=== PATIENT | female | born 1950 | race Caucasian/White ===

== ENCOUNTER 2022-06-30 13:08 | Inpatient (IN) | payer MEDICARE, OTHER ==
[~2022-06-30] VITALS: Ht 162.6 cm; Wt 64.4 kg
--- NOTE | 2022-06-30 13:30 | NUR ---
Called bottle house cleaners supervisor to try to get a sitter for patient since she is known to be agressive.
[2022-06-30 13:40] LABS: HEMATOCRIT 40.7 % (31.2-41.9); MEAN CORPUSCULAR VOLUME 94.9 fL (75.5-95.3); PLATELET COUNT (AUTO) 136 K/uL (179-408)
--- NOTE | 2022-06-30 13:41 | NUR ---
Patient BIBEMS from [facility], sent by PCP Dr. Hatch, for poor appetite, non-compliance with psychoactive medications and physically combative with staff. Patient is awake and alert, speaking to herself, repeating each word multiple times. Unable to assess cognitive status. Patient seen by the MD, labs ordered, 3 person required to hold her hand and #20G angio-cath to (RT) F/A, blood collected and sent. Patient is stable on the stretcher in the lowest position, call ferreira within reach, and awaiting disposition.
[2022-06-30 13:52] LABS: CARBON DIOXIDE 27 mmol/L (21-32); CHLORIDE 96 mmol/L (98-107); CREATININE 0.9 mg/dL (0.6-1.3); GLUCOSE 121 mg/dL (74-106); POTASSIUM 4.2 mmol/L (3.5-5.1); UREA NITROGEN, BLOOD 18 mg/dL (7-18)
[2022-06-30 13:55] LABS: ETHANOL < 3 MG/DL (0-0)
--- NOTE | 2022-06-30 14:00 | NUR ---
Note undone in EDM - 06/30/22 at 1854 by [email or web address] Patient BIBEMS from [facility], sent by PCP Dr. Hatch, for poor appetite, non-compliance with psychoactive medications and physically combative with staff. Patient is awake and alert, speaking to herself, repeating each word multiple times. Unable to assess patient's cognitive status. Patient seen by the MD labs ordered, 3 person required to hold her hand and #20G angio-cath to (RT) F/A, blood collected and sent. Patient is stable on the stretcher in the lowest position, call ferreira within reach, awaiting disposition.
[2022-06-30 14:05] LABS: ALANINE AMINOTRANSFERASE 22 U/L (14-59); ALKALINE PHOSPHATASE 112 U/L (50-136); ASPARTATE AMINOTRANSFERASE 43 U/L (15-37); BILIRUBIN,DIRECT 0.8 mg/dL (0.0-0.2); TOTAL PROTEIN, SERUM 6.6 g/dL (6.4-8.2)
[2022-06-30 14:08] LABS: ACETAMINOPHEN < 2.0 ug/mL (10-30)
--- NOTE | 2022-06-30 18:25 | NUR ---
Patient remains the same with no change in her behavior. No S/S of pain/discomfort. Patient medically cleared, [employer] On-Call elevator worker called, patient assessed and placed on a 5150 Hold, Danger to self and other, Gravely disabled. Patient has an assigned bed, assigned nurse RN , called and verbal report given via the telephone. Patient stable transported on the stretcher to her assigned bed. Patient became physically agressive, scrathing, kicking and grabbing staff. Patient left with his assigned nurse.
[2022-06-30 18:40] VITALS: BP 148/126
[2022-06-30] MEDS ORDERED: LORAZEPAM 0.5 MG TABLET PO PRN (18:45)
[2022-06-30] MEDS ORDERED: LORAZEPAM 2 MG/1 ML VIAL IM ONE (18:45)
[2022-06-30] MEDS ORDERED: diphenhydrAMINE 50 MG/1 ML VIAL IM ONE (18:45)
[2022-06-30] MEDS ORDERED: MAG HYDROX/AL HYDROX/SIMETH 30 ML LIQUID UDC PO PRN (18:45)
[2022-06-30] MEDS ORDERED: HALOPERIDOL LACTATE 5 MG/1 ML VIAL IM ONE (18:45)
[2022-06-30] MEDS ORDERED: ACETAMINOPHEN 325 MG TABLET PO PRN (18:45)
[2022-06-30] MEDS ORDERED: MAGNESIUM HYDROXIDE 30 ML LIQUID UDC PO PRN (18:45)
[2022-06-30] MEDS ORDERED: TEMAZEPAM 7.5 MG CAPSULE PO PRN (18:45)
--- NOTE | 2022-06-30 19:07 | NUR ---
Pt arrived on the unit at 1835 on the [facility]. Pt is irritable, A/O x0. Pt was combative when vital signs were taken. pt attempted to kick and punch staff. pt was not coopetive, non-sensical and not able to follow directions. Dr. Ruiz was contacted, order for Benadryl 25mg, Ativan 1 mg, Haldol 5 mg IM. Medication given, pt tolerated well. Report endorsed to the upcoming shift.
--- NOTE | 2022-06-30 20:00 | NUR ---
Admitted earlier during dayshift. patient is a 72 years old female form [facility] to [facility] on a 5150 for DTO and GD. per hold, patient has been aggressive toward others at her facility, she is confused and disorganized. She is not eating and not compliant with her medication regiment. Patient was received sitting in a claudio chair. She just got emergency IMs haldol, benadryl and ativan for severe agitation. Patient is noted confused, uncooperative, guarded and restless. She is unable to have a meaningful conversation with this fiction and nonfiction prose writer. Skin assessment was limited d/t patient's poor compliant. but it was observed bruises on her right wrist and distal arm. will reassess when she is calmer. patient was given her advisement as well as her booklet of patient's right. Safety and fall precautions continue in place. Her V/S are stable. she refused PO fluids and snacks. will continue to monitor Q15 min checks as per unit protocol.
[2022-06-30] MEDS ORDERED: AZAT50TA18 PO (21:32)
[2022-06-30] MEDS ORDERED: LISI1TAB55 PO (21:44)
[2022-06-30] MEDS ORDERED: DIVA250T4 PO (21:44)
[2022-06-30] MEDS ORDERED: MIRT-93 PO (21:44)
[2022-06-30] MEDS ORDERED: DONE5TAB7 PO (21:48)
--- NOTE | 2022-07-01 06:46 | NUR ---
Patient slept for approx 7 hrs through the night. she is calm at this time. will continue to monitor.
[2022-07-01 08:06] VITALS: BP 162/92
[2022-07-01] MEDS: OLANZAPINE 2.5 MG TABLET PO SCH ×2 (10:30→17:00)
--- NOTE | 2022-07-01 10:51 | NUR ---
Firearms Report: Unit Trust Manager completed and submitted a DOJ firearms report for 5150 grave disability and danger to others certifications. A copy of report has been placed in patient chart.
--- NOTE | 2022-07-01 14:34 | NUR ---
patient is confused and disoriented up to handy-chair ,patient is restless irritable not compliant with medication and nursing care. patient is agitated and aggressive when approach ,unable to attend in group activity .poor impulse control and poor insight will continue close monitoring.
[2022-07-01 16:09] VITALS: BP 138/73
--- NOTE | 2022-07-01 20:30 | NUR ---
Received patient sitting in a claudio chair. she is noted awake. she is confused, with disorganized speech. she is unable to have a meaningful conversation with this singer songwriter. She is resistant to care and combative at times. She requires two to three staff to provided ADLs and care. she is hard to redirect and she is unable to follow directions. Patient refused PO fluids and snacks. All her needs are met. she was provided with a shower. She refused V/S. Safety and fall precautions are in place
[2022-07-01] MEDS: DONEPEZIL 5 MG TABLET PO SCH (21:00)
[2022-07-01] MEDS: GABAPENTIN 100 MG CAPSULE PO SCH (21:00)
--- NOTE | 2022-07-01 22:00 | NUR ---
patient refused all her [facility] meds. she is hard to redirect and she does not follow directions. will continue with safety and fall precautions.
[2022-07-02 07:30] VITALS: BP 150/64
[2022-07-02] MEDS: GABAPENTIN 100 MG CAPSULE PO SCH ×2 (09:00→20:33)
[2022-07-02] MEDS: OLANZAPINE 2.5 MG TABLET PO SCH ×2 (09:00→17:00)
--- NOTE | 2022-07-02 14:13 | NUR ---
Treatment Plan Patient refused to sign treatment plan due to disorganized thought process.
--- NOTE | 2022-07-02 14:13 | NUR ---
SURESH Initial Discharge Note: Patient currently resides at [facility] located at [address] [place] [address] ([phone]). SURESH contacted [facility] and spoke with Radha who confirmed that pt is welcome back upon discharge. SURESH will speak with pt's daughter, Radha, to discuss discharge plan. SURESH will continue to work with pt, family, and MD to ensure a safe and proper discharge plan.
--- NOTE | 2022-07-02 15:40 | NUR ---
Receive patient sleeping in her room. A/O X 2 to person, place. Patient is withdrawn, isolative, refusing medications and uncooperative with nursing care, combative at times. Reality orientation provided. Fall and safety precautions implemented.
[2022-07-02 15:53] VITALS: BP 142/77
--- NOTE | 2022-07-02 16:19 | NUR ---
SW Family Contact: SW spoke with patient's daughter/DPOA, Radha ([phone]) and discussed treatment and discharge plan. Radha provided collateral information (see SW assessment). Radha stated she and her sister, Key, are DPOA and this SW requested copies.
[2022-07-02] MEDS: MEGESTROL ACETATE 20 MG TABLET PO SCH (17:00)
[2022-07-02] MEDS: ENSURE ENLIVE (VAN) 240 ML LIQUID PO SCH (17:00)
[2022-07-02 19:56] VITALS: BP 156/81
[2022-07-02] MEDS: DONEPEZIL 5 MG TABLET PO SCH (20:33)
--- NOTE | 2022-07-02 21:03 | NUR ---
GPS: Pt.remains confused,disorganized. Refuses meds.and care despite explanation of importance. Uncooperative/combative during care/incontinence care. Poor insight to present situation. Fall precautions observed. Will continue to monitor.
[2022-07-02] MEDS ORDERED: REMEDY ESSENTIAL ZINC PASTE 113 GM TOP SCH (22:15)
[2022-07-03 06:00] LABS: *AMPHETAMINE, URINE NEGATIVE (NEGATIVE); *CANNABINOID, URINE NEGATIVE (NEGATIVE); *COCCAINE, URINE NEGATIVE (NEGATIVE); *OPIATE, URINE NEGATIVE (NEGATIVE); *PHENCYCLIDINE SCREEN,URINE NEGATIVE (NEGATIVE)
[2022-07-03 06:23] LABS: *CLARITY,URINE TURBID (CLEAR); *COLOR,URINE YELLOW (YELLOW)
[2022-07-03 06:24] LABS: *BILIRUBIN,URIN NEGATIVE (NEGATIVE); *BLOOD, URINE 3+ (NEGATIVE); *KETONES,URINE 3+ (NEGATIVE); *UROBILINOGEN,URINE 0.2 E.U./dl (NORMAL); LEUKOCYTE ESTERASE ,URINE 3+ (NEGATIVE); NITRITE, URINE NEGATIVE (NEGATIVE); UGLUCOSE NEGATIVE (NEGATIVE)
--- NOTE | 2022-07-03 06:24 | NUR ---
GPS: Pt.slept 9.30 last night. Combative/uncooperative/resistant to nursing care despite explanation of procedures. Fall precautions observed. Refused PO fluids when encouraged. Behavior monitoring continues.
[2022-07-03 06:33] LABS: BACTERIA,URINE MANY /HPF (NONE SEEN); SQUAMOUS EPITHELIAL CELL,UR FEW /HPF (NONE SEEN); WBC,URINE NONE SEEN /HPF (0-3)
[2022-07-03 06:34] LABS: RBC,URINE 50-80 /HPF (0-3)
[2022-07-03 07:30] VITALS: BP 141/87
[2022-07-03] MEDS: GABAPENTIN 100 MG CAPSULE PO SCH ×2 (09:00→21:00)
[2022-07-03] MEDS: ENSURE ENLIVE (VAN) 240 ML LIQUID PO SCH ×3 (09:00→16:24)
[2022-07-03] MEDS: MEGESTROL ACETATE 20 MG TABLET PO SCH ×2 (09:00→16:25)
[2022-07-03] MEDS: OLANZAPINE 2.5 MG TABLET PO SCH ×2 (09:00→16:25)
--- NOTE | 2022-07-03 10:03 | NUR ---
Pt received lying in bed resting comfortably. No aggressive or combative behavior noted. Denies SI at this time. Pt is confused and disoriented, quite disorganized and nonsensical at times. Incongruent affect and labile mood. Refused all scheduled medications at this time.
[2022-07-03 16:06] VITALS: BP 136/80
--- NOTE | 2022-07-03 17:03 | NUR ---
Pt noted to have apparent worsening skin tear right forearm and right buttocks. Kept clean and dry. Cleansed with NS. Spoke with Dr. Hatch with orders to have wound consult. Pt denies pain or discomfort at this time. No s/s of infection noted.
[2022-07-03 20:02] VITALS: BP 140/80
[2022-07-03] MEDS: DONEPEZIL 5 MG TABLET PO SCH (21:00)
[2022-07-03] MEDS: CEphaleXIN 500 MG CAPSULE PO SCH (22:00)
--- NOTE | 2022-07-03 22:22 | NUR ---
Applied Mepalex-gauze to (R) buttocks, and applied bandage to (R) forearm wounds.
[2022-07-04] MEDS: CEphaleXIN 500 MG CAPSULE PO SCH ×3 (06:00→21:26)
[2022-07-04 07:39] VITALS: BP 136/82
[2022-07-04] MEDS: GABAPENTIN 100 MG CAPSULE PO SCH ×2 (09:00→20:11)
[2022-07-04] MEDS: MEGESTROL ACETATE 20 MG TABLET PO SCH ×2 (09:00→17:00)
[2022-07-04] MEDS: METOPROLOL TARTRATE 25 MG TABLET PO SCH ×2 (09:00→20:11)
[2022-07-04] MEDS: ENSURE ENLIVE (VAN) 240 ML LIQUID PO SCH ×3 (09:00→17:00)
[2022-07-04] MEDS: FAMOTIDINE 20 MG TABLET PO SCH (09:00)
[2022-07-04] MEDS: OLANZAPINE 10 MG VIAL IM PRN ×2 (10:25→20:45)
[2022-07-04] MEDS: OLANZAPINE 2.5 MG TABLET PO SCH ×2 (10:30→20:11)
[2022-07-04] MEDS ORDERED: CEFTRIAXONE 1 G VIAL IM ONE (11:30)
[2022-07-04] MEDS: REMEDY ESSENTIAL ZINC PASTE 113 GM TOP PRN (12:47)
--- NOTE | 2022-07-04 13:07 | NUR ---
SW Family Contact: SW spoke with patient's daughters/DPOA, Radha ([phone]) and Key ([phone]) in person and discussed pt's discharge plan. Mitzy stated that they are able to provide transportation for the pt if the facility is not able to. Mitzy stated pt ate a lot during lunch with them and appeared more engaging.
--- NOTE | 2022-07-04 13:31 | NUR ---
Gps/[employer]- Daughters were in , brought foods from home , patient was able to eat with them, and was able to drinks fluids. Fidgety, remains in bed at this time monitored for safety , talking confused and incoherent speech .
[2022-07-04 17:03] VITALS: BP 109/77
--- NOTE | 2022-07-04 17:35 | NUR ---
Gps/Aircraft Systems Technician- Kept skin dry and clean, frequent reporitioning, pressure relief, excoriation inner buttock, z-guard , mepilex applied /secured , patient tends to wiggle, slides
[2022-07-04 19:50] VITALS: BP 116/72
[2022-07-04] MEDS: DONEPEZIL 5 MG TABLET PO SCH (20:11)
[2022-07-05] MEDS: CEphaleXIN 500 MG CAPSULE PO SCH ×2 (05:48→14:00)
--- NOTE | 2022-07-05 05:56 | NUR ---
GPS NOTES: Remains non-compliant with medications and nursing care. Unable to understand concepts of importance of med compliance d/t confusion. Zyprexa 2.5mg IM given. Tolerated well. Safety strategies in placed.
[2022-07-05 07:42] VITALS: BP 126/76
[2022-07-05] MEDS: ENSURE ENLIVE (VAN) 240 ML LIQUID PO SCH ×3 (09:00→17:00)
[2022-07-05] MEDS: GABAPENTIN 100 MG CAPSULE PO SCH ×2 (09:00→20:08)
[2022-07-05] MEDS: OLANZAPINE 2.5 MG TABLET PO SCH ×2 (09:00→20:08)
[2022-07-05] MEDS: METOPROLOL TARTRATE 25 MG TABLET PO SCH ×2 (09:00→20:07)
[2022-07-05] MEDS: MEGESTROL ACETATE 20 MG TABLET PO SCH ×2 (09:00→17:00)
[2022-07-05] MEDS: FAMOTIDINE 20 MG TABLET PO SCH (09:00)
[2022-07-05] MEDS: OLANZAPINE 10 MG VIAL IM PRN ×2 (09:26→20:52)
--- NOTE | 2022-07-05 10:27 | NUR ---
SURESH Discharge Update: SURESH Spoke with leonadra and Jos regarding pt's transportation upon discharge. Jos stated they provide transportation only on Tuesdays and from 9am to 2pm.
--- NOTE | 2022-07-05 11:34 | NUR ---
WOUND CARE CONSULT: PT PRESENTS WITH INCONTINENCE ASSOCIATED OPEN SKIN TO RT INNER BUTTOCK AND SKIN TEAR TO RT ARM. PT ADAMANTLY REFUSED ASSESSMENT OF SKIN TEAR. RECOMMENDATIONS MADE FOR SKIN CARE AND PROTECTION. DISCUSSED WITH NURSING STAFF. PT NOTED TO BE COMBATIVE.
--- NOTE | 2022-07-05 11:34 | NUR ---
Gps/Mold Finisher- Wound Care Nurse Amy came in and examined wound in patient's right inner buttock , site was cleansed with water and soap, pat dry, z-guard applied, mepilex foam secured. Incontienent of urine, good skin care rendered. Called lab. spoked to Leslye , will be coming to re-draw labs. will assist Tech.
[2022-07-05 12:03] LABS: HEMATOCRIT 40.8 % (31.2-41.9); MEAN CORPUSCULAR HEMOGLOBIN 33.6 uug (24.7-32.8); PLATELET COUNT (AUTO) 91 K/uL (179-408)
[2022-07-05 12:27] LABS: THYROID STIMULATING HORMONE 1.224 mIU/mL (0.358-3.740)
[2022-07-05 13:20] LABS: BILIRUBIN,TOTAL 1.7 mg/dL (0.2-1.0); CREATININE 0.7 mg/dL (0.6-1.3); MAGNESIUM 1.8 mg/dL (1.8-2.4); PHOSPHOROUS 3.7 mg/dL (2.5-4.9); POTASSIUM 3.8 mmol/L (3.5-5.1); TOTAL PROTEIN, SERUM 6.3 g/dL (6.4-8.2)
--- NOTE | 2022-07-05 14:45 | NUR ---
Per Dr. Ruiz requested to transfer patient to telemetry , paged now.
--- NOTE | 2022-07-05 15:28 | NUR ---
Spoke with Dr. Ruiz will continue 14 days hold and also D/C all psychotropic medication for transfer.
--- NOTE | 2022-07-05 15:45 | NUR ---
notified hose brush fabrication supervisor for Tele transfer , waiting for the bed available .
--- NOTE | 2022-07-05 15:54 | NUR ---
Gps/Tank Welder- Orders received by Rn in Charge Karl from Dr Ruiz as well as Dr Greenwood , patient need to be transfer to Telemetry for higher level of care..
[2022-07-05] MEDS: REMEDY ESSENTIAL ZINC PASTE 113 GM TOP PRN (16:01)
[2022-07-05 16:58] VITALS: BP 128/74
[2022-07-05 19:54] VITALS: BP 124/72
[2022-07-05] MEDS: DONEPEZIL 5 MG TABLET PO SCH (20:07)
--- NOTE | 2022-07-05 21:15 | NUR ---
TRANSFER NOTES: Report given to Solange, patient transferred to telemetry unit room 321 d/t dehydration. Patient transferred safely from handy chair to bed.
[2022-07-05] MEDS ORDERED: MAG-55 PO (21:36)
[2022-07-05] MEDS ORDERED: ZINC113P3 TP (21:36)
[2022-07-05] MEDS ORDERED: FAMO-132 PO (21:36)
[2022-07-05] MEDS ORDERED: ACET-2154 PO (21:36)
[2022-07-05] MEDS ORDERED: CEPH500C2 PO (21:36)
[2022-07-05] MEDS ORDERED: MEGE20TA4 PO (21:36)
[2022-07-05] MEDS ORDERED: MAGN400O6 PO (21:36)
[2022-07-05] MEDS ORDERED: LACT-246 PO (21:36)
[2022-07-05] MEDS ORDERED: METO25TA6 PO (21:36)
[2022-07-08] MEDS ORDERED: ACID1TAB4 PO (16:18)
== END 2022-07-05 21:18 | disposition short-term general hospital (02) | DRG 885 ==
LOC: ER 13:11 → GPS 18:04
PROVIDERS: ADMIT Psychiatry & Neurology Psychosomatic Medicine; ATTEND Nurse Practitioner Acute Care
DX: F39 Unspecified mood [affective] disorder (principal); E87.1 Hypo-osmolality and hyponatremia; E44.0 Moderate protein-calorie malnutrition; N39.0 Urinary tract infection, site not specified; F03.92 Unspecified dementia, unspecified severity, with psychotic disturbance; F03.94 Unspecified dementia, unspecified severity, with anxiety; I85.10 Secondary esophageal varices without bleeding; M48.56XA Collapsed vertebra, not elsewhere classified, lumbar region, initial encounter for fracture; F29 Unspecified psychosis not due to a substance or known physiological condition; D69.6 Thrombocytopenia, unspecified; E80.6 Other disorders of bilirubin metabolism; I10 Essential (primary) hypertension; K74.60 Unspecified cirrhosis of liver; M19.90 Unspecified osteoarthritis, unspecified site; R62.7 Adult failure to thrive; Z88.2 Allergy status to sulfonamides; T50.2X5A Adverse effect of carbonic-anhydrase inhibitors, benzothiadiazides and other diuretics, initial encounter; Y92.89 Other specified places as the place of occurrence of the external cause; G62.9 Polyneuropathy, unspecified; F32.9 Major depressive disorder, single episode, unspecified; Z91.199 Patient's noncompliance with other medical treatment and regimen due to unspecified reason; Z68.24 Body mass index [BMI] 24.0-24.9, adult
CPT/HCPCS: 36415; 83735; 83935; 84100; 84300; 84443; 84484; 85025; 86803; 93005; A4663; A6209; C1758; G0480; J0696; J1200; J1630; J2060; J2358

== ENCOUNTER 2022-07-05 20:43 | Inpatient (IN) | payer MEDICARE, OTHER ==
[~2022-07-05] VITALS: Ht 162.6 cm; Wt 64.4 kg
[~2022-07-05 20:43] MED LIST: AZAT50TA18 PO; LISI1TAB55 PO
--- NOTE | 2022-07-05 21:15 | NUR ---
PATIENT ADMITTED FROM [facility] FOR DEHYDRATION. PATIENT IS ALERT TO SELF ONLY, CONFUSED AND DISORIENTED. SITTER AT BEDSIDE. VS WNL. ALL NEEDS ATTENDED. BED ALARM ON. WILL CONTINUE TO MONITOR AND ASSESS.
[2022-07-05] MEDS ORDERED: MAGN400O6 PO (21:36)
[2022-07-05] MEDS ORDERED: METO25TA6 PO (21:36)
[2022-07-05] MEDS ORDERED: ACET-2154 PO (21:36)
[2022-07-05] MEDS ORDERED: ZINC113P3 TP (21:36)
[2022-07-05] MEDS ORDERED: LACT-246 PO (21:36)
[2022-07-05] MEDS ORDERED: FAMO-132 PO (21:36)
[2022-07-05] MEDS ORDERED: CEPH500C2 PO (21:36)
[2022-07-05] MEDS ORDERED: MAG-55 PO (21:36)
[2022-07-05] MEDS ORDERED: MEGE20TA4 PO (21:36)
[2022-07-05] MEDS ORDERED: MAGNESIUM HYDROXIDE 30 ML LIQUID UDC PO PRN (22:00)
[2022-07-05] MEDS ORDERED: ACETAMINOPHEN 325 MG TABLET PO PRN (22:00)
[2022-07-05] MEDS ORDERED: ONDANSETRON 4 MG/2 ML VIAL IV PRN (22:00)
[2022-07-05] MEDS ORDERED: REMEDY ESSENTIAL ZINC PASTE 113 GM TP PRN (22:00)
[2022-07-05 22:17] VITALS: BP 117/63
[2022-07-05] MEDS: IV NS 1000 ML 1,000 ML IV PRN (22:43)
[2022-07-05] MEDS ORDERED: CEFTRIAXONE 1 G VIAL ONE (23:23)
[2022-07-05] MEDS: CEFTRIAXONE 1 G in IV DEXTROSE 5% 50 ML IV SCH (23:41)
[2022-07-06 04:42] VITALS: BP 116/64
[2022-07-06 06:34] LABS: HEMATOCRIT 37.4 % (31.2-41.9); MEAN CORPUSCULAR HEMOGLOBIN 33.6 uug (24.7-32.8); MEAN CORPUSCULAR VOLUME 95.8 fL (75.5-95.3); PLATELET COUNT (AUTO) 89 K/uL (179-408)
[2022-07-06 07:38] LABS: CARBON DIOXIDE 25 mmol/L (21-32); CHLORIDE 103 mmol/L (98-107); CREATININE 0.5 mg/dL (0.6-1.3); GLUCOSE 115 mg/dL (74-106); MAGNESIUM 1.8 mg/dL (1.8-2.4); PHOSPHOROUS 3.2 mg/dL (2.5-4.9); POTASSIUM 3.4 mmol/L (3.5-5.1); UREA NITROGEN, BLOOD 16 mg/dL (7-18)
[2022-07-06 08:36] VITALS: BP 102/65
[2022-07-06] MEDS: METOPROLOL TARTRATE 25 MG TABLET PO SCH ×2 (08:38→20:56)
[2022-07-06] MEDS: FAMOTIDINE 20 MG TABLET PO SCH (08:39)
[2022-07-06] MEDS: ENSURE ENLIVE (VAN) 240 ML LIQUID PO SCH ×3 (08:39→16:34)
[2022-07-06] MEDS ORDERED: ENOXAPARIN SODIUM 40 MG/0.4 ML DISP.SYRIN SQ SCH (09:00)
[2022-07-06] MEDS: CEFTRIAXONE 1 G in IV DEXTROSE 5% 50 ML IV SCH (09:52)
--- NOTE | 2022-07-06 10:05 | NUR ---
platelets count 89, dr rodriguez approved to give Lovenox once and then discontinue.
[2022-07-06] MEDS ORDERED: POTASSIUM CHLORIDE 20 MEQ TAB.PRT.SR PO ONE (10:30)
[2022-07-06] MEDS ORDERED: POTASSIUM CHLORIDE 20 MEQ POWDER PACKET PO ONE (11:30)
--- NOTE | 2022-07-06 12:13 | NUR ---
PATIENT REFUSED TO HAVE EKG DONE, PATIENT GOT COMBATIVE, WHILE TRIED TO DO EKG.
[2022-07-06] MEDS: AZATHIOPRINE 50 MG TABLET PO SCH (14:03)
[2022-07-06] MEDS: IV NS 1000 ML 1,000 ML IV PRN (14:50)
--- NOTE | 2022-07-06 15:34 | NUR ---
acute medical restraint mittens to both hands discontinued, patient has 1:1 sitter.
[2022-07-06 16:32] VITALS: BP 107/75
--- NOTE | 2022-07-06 18:18 | NUR ---
patient continue with combativeness during care, kept clean and dry, wound care is provided to right gluteal fold and to right wrist, no drainage noted from right gluteal wound and right wrist, no signs and symptoms of infections noted. continue to monitor.
[2022-07-06 20:32] VITALS: BP 115/64
[2022-07-06] MEDS: OLANZAPINE 2.5 MG TABLET PO SCH (20:56)
[2022-07-06] MEDS: DONEPEZIL 5 MG TABLET PO SCH (20:56)
[2022-07-06] MEDS: REMEDY ESSENTIAL ZINC PASTE 113 GM TP SCH (20:57)
[2022-07-06 21:24] LABS: EOSINOPHILS % (MANUAL) 1 % (0-8); LYMPHOCYTES % (MANUAL) 21 % (20-40); MONOCYTES % (MANUAL) 8 % (2-10); NEUTROPHILS % (MANUAL) 70 % (42-75)
[2022-07-07] MEDS: IV NS 1000 ML 1,000 ML IV PRN ×2 (04:17→18:00)
[2022-07-07 06:13] VITALS: BP 115/59
[2022-07-07] MEDS: FAMOTIDINE 20 MG TABLET PO SCH (08:25)
[2022-07-07] MEDS: METOPROLOL TARTRATE 25 MG TABLET PO SCH ×2 (08:34→20:27)
[2022-07-07 08:35] VITALS: BP 142/62
[2022-07-07] MEDS: CEFTRIAXONE 1 G in IV DEXTROSE 5% 50 ML IV SCH (09:00)
[2022-07-07] MEDS: ENSURE ENLIVE (VAN) 240 ML LIQUID PO SCH ×3 (09:01→16:12)
[2022-07-07] MEDS: AZATHIOPRINE 50 MG TABLET PO SCH (09:03)
[2022-07-07] MEDS: REMEDY ESSENTIAL ZINC PASTE 113 GM TP SCH ×2 (09:03→20:25)
[2022-07-07 10:49] VITALS: BP 114/45
[2022-07-07 16:30] VITALS: BP 110/55
[2022-07-07] MEDS: OLANZAPINE 2.5 MG TABLET PO SCH (20:24)
[2022-07-07] MEDS: DONEPEZIL 5 MG TABLET PO SCH (20:25)
[2022-07-07 20:32] VITALS: BP 108/50
--- NOTE | 2022-07-07 23:18 | NUR ---
patient continue with combativeness during care, IV access not patent, discontinued, not able to reinsert IV access, patient got too combative while try to put IV access on her, patient gets too combative and very resistive to care, did not sleep until now, constantly talking to herself, kept clean and dry, wound care is provided to right gluteal fold and to right wrist, no drainage noted from right gluteal wound and right wrist, no signs and symptoms of infections noted. continue to monitor. will try again to reinsert IV.
[2022-07-08 04:44] VITALS: BP 125/62
--- NOTE | 2022-07-08 06:08 | NUR ---
patient did not sleep at night, was awake during night and talking to herself, remained resistant and combative during care.
[2022-07-08 06:29] LABS: HEMATOCRIT 37.9 % (31.2-41.9); MEAN CORPUSCULAR HEMOGLOBIN 33.5 uug (24.7-32.8); MEAN CORPUSCULAR VOLUME 97.4 fL (75.5-95.3); PLATELET COUNT (AUTO) 88 K/uL (179-408)
[2022-07-08 06:53] LABS: BILIRUBIN,TOTAL 1.5 mg/dL (0.2-1.0); CREATININE 0.6 mg/dL (0.6-1.3); MAGNESIUM 1.7 mg/dL (1.8-2.4); PHOSPHOROUS 3.1 mg/dL (2.5-4.9); POTASSIUM 3.7 mmol/L (3.5-5.1); TOTAL PROTEIN, SERUM 5.7 g/dL (6.4-8.2)
[2022-07-08] MEDS: MAGNESIUM SULFATE/D5W 100 ML IV SCH ×2 (08:45→10:30)
[2022-07-08] MEDS ORDERED: POTASSIUM CHLORIDE 20 MEQ TAB.PRT.SR PO ONE (08:45)
[2022-07-08] MEDS: FAMOTIDINE 20 MG TABLET PO SCH (08:57)
[2022-07-08] MEDS: REMEDY ESSENTIAL ZINC PASTE 113 GM TP SCH (08:57)
[2022-07-08] MEDS: AZATHIOPRINE 50 MG TABLET PO SCH (08:58)
[2022-07-08] MEDS: ENSURE ENLIVE (VAN) 240 ML LIQUID PO SCH ×3 (08:58→17:55)
[2022-07-08] MEDS: CEFTRIAXONE 1 G in IV DEXTROSE 5% 50 ML IV SCH ×2 (09:00→10:30)
[2022-07-08 09:05] VITALS: BP 124/83
[2022-07-08] MEDS: METOPROLOL TARTRATE 25 MG TABLET PO SCH (09:05)
--- NOTE | 2022-07-08 10:31 | NUR ---
WOUND CARE CONSULT: EXTREMELY DIFFICULT ASSESSMENT DUE TO PT COMBATIVE. RT INNER BUTTOCK WOUND NOTED TO BE PRESENT ON ADMISSION. PT IS INCONTINENT. RECOMMENDATIONS MADE FOR SKIN PROTECTION AND WOUND CARE. DISCUSSED WITH NURSING STAFF. SURGICAL CONSULT CALLED TO DR KOHANZADEH. MARROQUIN IN AGREEMENT WITH PLAN OF CARE.
--- NOTE | 2022-07-08 10:34 | NUR ---
SURESH Transfer Note: Patient resides at [facility] located at [address] [place] [phone] ([phone]). Pt is welcome back upon discharge. SURESH contacted [facility] and spoke with Jos regarding pt's transportation upon discharge. Jos stated they provide transportation only on Tuesdays and from 9am to 2pm. SURESH spoke with patient's daughters/DPOA, Radha ([phone]) and Key ([phone]) in person and discussed pt's discharge plan. Radha stated they can provide transportation to the facility if needed if private vehicle transportation is cleared by the Doctor.
[2022-07-08] MEDS ORDERED: THERAHONEY GEL 1.5 OZ TUBE TOP SCH (10:45)
[2022-07-08] MEDS ORDERED: OLANZAPINE 2.5 MG TABLET PO SCH (11:30)
--- NOTE | 2022-07-08 14:03 | NUR ---
Patient found in hospital awake. She is comfortable currently. No s/s of pain nor distress noted. Patient has 1:1. She is very aggressive and combative. Night nurse reported that patient did not sleep last night. During my shift, no meal intake, morning medication given crushed with orange juice which she ended up spitting out. No IV access, she was very combative and nurse was unable to access IV. Rocephin 1 G in IV Dextrose 5% 50 ml not given. afternoon medication refused. Dr. Hatch aware. Patient is awaiting discharge to MHU. Will continue to monitor.
[2022-07-08] MEDS ORDERED: ACID1TAB4 PO (16:18)
--- NOTE | 2022-07-08 17:45 | NUR ---
PATIENT IS TO BE DISCHARGE TO MHU. SHE IS COMFORTABLE CURRENTLY. SN, AWAITING TO GIVE REPORT TO NURSE. CALLED X2 TIMES MHU, NURSE STATES SHE WILL CALL BACK IN 15 MINUTES.
--- NOTE | 2022-07-08 18:52 | NUR ---
Patient discharged to MHU at 1830. Reported given to charge nurse.
== END 2022-07-08 18:55 | DRG 640 ==
LOC: TELE3 20:43 → MEDSURG3 23:08
PROVIDERS: ADMIT Internal Medicine; ATTEND Internal Medicine
DX: E86.0 Dehydration (principal); G93.41 Metabolic encephalopathy; N39.0 Urinary tract infection, site not specified; D68.59 Other primary thrombophilia; E44.0 Moderate protein-calorie malnutrition; F03.92 Unspecified dementia, unspecified severity, with psychotic disturbance; I85.10 Secondary esophageal varices without bleeding; F03.94 Unspecified dementia, unspecified severity, with anxiety; E87.1 Hypo-osmolality and hyponatremia; Z74.09 Other reduced mobility; D69.6 Thrombocytopenia, unspecified; G62.9 Polyneuropathy, unspecified; I10 Essential (primary) hypertension; K74.60 Unspecified cirrhosis of liver; Z88.2 Allergy status to sulfonamides; Z91.199 Patient's noncompliance with other medical treatment and regimen due to unspecified reason; F32.A Depression, unspecified; F41.9 Anxiety disorder, unspecified; E80.6 Other disorders of bilirubin metabolism; M19.90 Unspecified osteoarthritis, unspecified site; T50.2X5A Adverse effect of carbonic-anhydrase inhibitors, benzothiadiazides and other diuretics, initial encounter; Y92.89 Other specified places as the place of occurrence of the external cause; F09 Unspecified mental disorder due to known physiological condition; F39 Unspecified mood [affective] disorder; Z68.24 Body mass index [BMI] 24.0-24.9, adult; Z87.81 Personal history of (healed) traumatic fracture
CPT/HCPCS: 36415; 70030-TC; 71045; 83735; 84100; 85025; A4663; A6209; A6213; G0378; J0696; J1650; J3475; J7040; J7500

== ENCOUNTER 2022-07-08 21:00 | Inpatient (IN) | payer MEDICARE, OTHER ==
[~2022-07-08] VITALS: Ht 167.6 cm; Wt 63.0 kg
[~2022-07-08 21:00] MED LIST changes: +ACET-2154 PO; +ACID1TAB4 PO; +CEPH500C2 PO; +FAMO-132 PO; +LACT-246 PO; +MAG-55 PO; +MAGN400O6 PO; +MEGE20TA4 PO; +METO25TA6 PO; +ZINC113P3 TP
--- NOTE | 2022-07-08 21:00 | NUR ---
GPS ADMISSION NOTES: Admitted a case of 72 y/o patient from Telemetry unit to MHU w/ diagnosis of psychosis. Patient on a 5250 d/t GD and DTO. She is not eating, drinking or taking her medications.Face to face evaluation done, she is A&0x1, unkempt w/ no distress noted. Patient unable to answer significant questions for assessment d/t confusion and paranoid behavior. Patient is disorganized with poor insight, judgement and poor impulse control. She remains combative and striking at staff when attempt to provide care. She is non-compliant with all aspects of care. Patient attempt to hit the underwriter solicitation director when taking picture for skin assessment, so unable to do so at this time. Copy of hold and patient rights handbook given at bedside. Safety strategies in all aspects left in place.
[2022-07-08] MEDS ORDERED: MAG HYDROX/AL HYDROX/SIMETH 30 ML LIQUID UDC PO PRN (21:45)
[2022-07-08] MEDS ORDERED: ACETAMINOPHEN 325 MG TABLET PO PRN (21:45)
[2022-07-08] MEDS ORDERED: BLOOD SUGAR DIAGNOSTIC 1 EACH STRIP VI ONE (21:45)
[2022-07-08] MEDS ORDERED: MAGNESIUM HYDROXIDE 30 ML LIQUID UDC PO PRN (21:45)
[2022-07-08] MEDS ORDERED: TEMAZEPAM 7.5 MG CAPSULE PO PRN (21:45)
[2022-07-08] MEDS ORDERED: LORAZEPAM 0.5 MG TABLET PO PRN (21:45)
[2022-07-09 07:39] VITALS: BP 119/69
[2022-07-09] MEDS: OLANZAPINE 5 MG TABLET PO SCH ×2 (11:12→20:27)
[2022-07-09] MEDS ORDERED: REMEDY ESSENTIAL ZINC PASTE 113 GM TOP PRN (11:15)
[2022-07-09] MEDS: OLANZAPINE 10 MG VIAL IM PRN ×2 (11:16→20:31)
[2022-07-09] MEDS: REMEDY ESSENTIAL ZINC PASTE 113 GM TOP SCH ×2 (11:16→20:27)
[2022-07-09] MEDS: GABAPENTIN 100 MG CAPSULE PO SCH ×2 (12:58→16:34)
--- NOTE | 2022-07-09 15:45 | NUR ---
GPS: Nursing Notes: Destructive Behavior To Others: Patient is awake and responding to her name, impaired judgment, poor insight, resistant with nursing care, striking out to staff when assisting her with ADL's, bite staff on the left forearm, responding to internal stimuli by talking to unseen others, talking incoherently, violent outburst without provocations, A/Ox1, unable to formulate a viable plan for self care, refusing to eat, refusing PO medications, throwing her her food on the floor, slapping staff hands when assisting her feeding, poor grooming, continue to monitor for safety, medicated per Ribrandi and psychiatrist's order, continue with treatment plan.
[2022-07-09 15:50] LABS: CREATININE 0.8 mg/dL (0.6-1.3); POTASSIUM 4.9 mmol/L (3.5-5.1); TOTAL PROTEIN, SERUM 6.2 g/dL (6.4-8.2)
[2022-07-09 16:35] VITALS: BP 124/72
[2022-07-09 19:53] VITALS: BP 116/66
[2022-07-09] MEDS: THERAHONEY GEL 1.5 OZ TUBE TOP SCH (20:28)
--- NOTE | 2022-07-10 04:28 | NUR ---
GPS NOTES: Patient remains combative with staff when providing all aspects of care, hitting staff and verbally abusive. Noted to be responding to internal stimuli. Given Zyprexa IM d/t refusing PO Zyprexa. Tolerated well. Wound care provided. She is not making any meaningful conversation, she is delusional that people are trying to hurt her. Re-orientation to reality not attainable with this patient as she is very confused and paranoid. Safety measures in placed.
[2022-07-10 07:38] LABS: HEMATOCRIT 36.1 % (31.2-41.9); MEAN CORPUSCULAR VOLUME 97.5 fL (75.5-95.3); PLATELET COUNT (AUTO) 77 K/uL (179-408)
[2022-07-10 07:46] VITALS: BP 118/66
[2022-07-10 07:48] LABS: MAGNESIUM 1.8 mg/dL (1.8-2.4); PHOSPHOROUS 3.6 mg/dL (2.5-4.9)
[2022-07-10] MEDS: OLANZAPINE 5 MG TABLET PO SCH ×2 (09:00→20:41)
[2022-07-10] MEDS: GABAPENTIN 100 MG CAPSULE PO SCH ×3 (09:00→17:00)
[2022-07-10] MEDS: OLANZAPINE 10 MG VIAL IM PRN ×2 (10:50→20:48)
[2022-07-10] MEDS: REMEDY ESSENTIAL ZINC PASTE 113 GM TOP SCH ×2 (10:51→20:53)
[2022-07-10] MEDS: THERAHONEY GEL 1.5 OZ TUBE TOP SCH (10:53)
--- NOTE | 2022-07-10 11:56 | NUR ---
SW ATTESTATION: Chlesea Yoon SAND CUTTER, ASW attest to the accuracy of the psychosocial done on July 02, 2022, by Margarita Ryan SAND CUTTER, FELLMONGERING MACHINE OPERATOR. On the admission for July 02, 2022, the patient was admitted to [facility]. Pt was living at [facility] facility ([phone]) located at [address] [place] [address] and may return there once stable. This SW spoke with patient's daughters/DPOA, Radha ([phone]) and Key ([phone]) in person and discussed pt's discharge plan to return to [facility]. Radha and Key stated that they are able to provide transportation for the pt if the facility is not able to. The patient appears to have a good support system by her two daughters. Patients mood appears depressed with minimal communication. On July 05, 2022, pt was transferred to the medical floor due to dehydration. Pt was medically cleared and readmitted to GPS on July 08, 2022. During this writers reevaluation, pt appeared to avoid eye contact. Pt continues to appear to be very confused and guarded. Pt requires assistance with her ADLs. Pt continues to appear depressed with a flat affect. SW was unable to ascertain whether patient was experiencing visual or auditory hallucinations. Pt refused to continue the assessment as she proceeded to sleep. Pt was unable to focus and appeared to be mentally preoccupied. disc pad knockout worker will contact [facility] ([phone]) to continue providing clinical updates for the pt prior to discharge. SW will continue to work with the pt, MD, and inform the pts daughters with her treatment and discharge updates.
[2022-07-10 12:33] LABS: EOSINOPHILS % (MANUAL) 1 % (0-8); LYMPHOCYTES % (MANUAL) 13 % (20-40); MONOCYTES % (MANUAL) 10 % (2-10); NEUTROPHILS % (MANUAL) 76 % (42-75)
[2022-07-10 16:05] VITALS: BP 117/66
[2022-07-10 20:23] VITALS: BP 128/63
--- NOTE | 2022-07-10 22:00 | NUR ---
Received patient in her room. she is noted awake A/O x 1. she is a poor historian. she is unable to have a meaningful conversation with this public relations writer. Upon approached, patient is easily irritable and hostile. she requires assistance whit ADLs and care but she gets aggressive when given care. Patient is hard to redirect. she refused PO fluids and snacks at this time. She refused Zyprexa 5mg PO QHS. she is reise, so she was given Zyprexa 5mg IM. Patient's tolerated well. Her V/S are stable. she is reassured for her safety. safety and fall precautions are in place. will continue to monitor.
[2022-07-11] MEDS: REMEDY ESSENTIAL ZINC PASTE 113 GM TOP SCH ×2 (08:56→21:05)
[2022-07-11] MEDS: THERAHONEY GEL 1.5 OZ TUBE TOP SCH (08:58)
[2022-07-11] MEDS: GABAPENTIN 100 MG CAPSULE PO SCH ×3 (09:00→17:00)
[2022-07-11] MEDS: OLANZAPINE 5 MG TABLET PO SCH (09:00)
[2022-07-11] MEDS ORDERED: OLANZAPINE 5 MG TABLET PO SCH (09:15)
[2022-07-11] MEDS: OLANZAPINE 2.5 MG TABLET PO SCH ×4 (09:17→20:55)
--- NOTE | 2022-07-11 11:24 | NUR ---
WOUND CARE CONSULT: RECEIVED CONSULT FOR RT INNER BUTTOCK AND LEFT FOREARM WOUNDS, PRESENT ON ADMISSION. PT FOLLOWED BY SURGICAL TEAM FOR WOUNDS. DEFER TO SURGICAL TEAM FOR WOUND TREATMENT PLAN. SKIN PROTECTION MEASURES IN PLACE. MD IN AGREEMENT WITH PLAN OF CARE.
[2022-07-11] MEDS: OLANZAPINE 10 MG VIAL IM PRN ×2 (13:50→17:48)
--- NOTE | 2022-07-11 20:45 | NUR ---
RECEIVED PATIENT IN HER ROOM IN BED. SHE IS NOTED AWAKE BUT SHE IS CONFUSED. PATIENT CONTINUE UNCOOPERATIVE. SHE IS RESISTANT TO CARE AND WITH ADLs. SHE IS UNABLE TO HAVE A MEANINGFUL CONVERSATION WITH THIS WEBSPHERE ADMINISTRATOR. SHE GETS EASILY IRRITABLE. SHE REFUSED V/S; HOWEVER, AFTER MULTIPLE ATTEMPTS AND REASSURANCE, PATIENT WAS ABLE TO COMPLY WITH ZYPREXA 2.5MG PO QHS. PATIENT IS REISE. SHE WAS ABLE TO TAKE FEW SPOONFUL OF VANILLA PUDDING BUT REFUSED PO FLUIDS. SHE REFUSED V/S. SAFETY AND FALL PRECAUTIONS ARE IN PLACE. PT IN NO DISTRESS. WILL CONTINUE TO MONITOR.
[2022-07-12 07:30] VITALS: BP 138/67
[2022-07-12] MEDS: OLANZAPINE 2.5 MG TABLET PO SCH ×4 (09:00→17:00)
[2022-07-12] MEDS: GABAPENTIN 100 MG CAPSULE PO SCH ×3 (09:00→17:00)
[2022-07-12] MEDS: REMEDY ESSENTIAL ZINC PASTE 113 GM TOP SCH ×2 (09:40→20:47)
[2022-07-12] MEDS: THERAHONEY GEL 1.5 OZ TUBE TOP SCH (09:41)
[2022-07-12] MEDS: OLANZAPINE 10 MG VIAL IM PRN ×2 (09:55→17:52)
--- NOTE | 2022-07-12 10:42 | NUR ---
Firearms Report: It Security Administrator completed and submitted a DOJ firearms report for 5150 a danger to others and grave disability certifications. A copy of report has been placed in patient chart.
[2022-07-12 16:00] VITALS: BP 118/82
--- NOTE | 2022-07-12 17:00 | NUR ---
Gps/Data Collection Technician- Remains to get aggressive during her pm care, needing 3 staff to provide her care r/t to patient kick grabs and tries to hit staff . Incontinent of urine, good rian care and good hygiene provided, kept skin dry, right forearm scabs started to bleed during her care Wound care right inner gluteal area .
[2022-07-12 19:47] VITALS: BP 135/71
[2022-07-13] MEDS: GABAPENTIN 100 MG CAPSULE PO SCH ×3 (08:29→16:04)
[2022-07-13] MEDS: OLANZAPINE 2.5 MG TABLET PO SCH ×4 (08:29→22:09)
[2022-07-13] MEDS: REMEDY ESSENTIAL ZINC PASTE 113 GM TOP SCH ×2 (08:30→21:00)
[2022-07-13] MEDS: THERAHONEY GEL 1.5 OZ TUBE TOP SCH (08:30)
[2022-07-13] MEDS: OLANZAPINE 10 MG VIAL IM PRN ×3 (08:32→16:04)
--- NOTE | 2022-07-13 09:42 | NUR ---
Pt received lying in bed confused and disoriented. Refusing all PO medications. Received IM medication as ordered per Miguel. Refused Breakfast this AM. No aggressive or combative behavior noted at this time.
[2022-07-13 16:21] VITALS: BP 136/79
[2022-07-13 20:02] VITALS: BP 138/82
[2022-07-14 07:54] VITALS: BP 120/54
[2022-07-14] MEDS: OLANZAPINE 2.5 MG TABLET PO SCH ×4 (08:48→20:22)
[2022-07-14] MEDS: GABAPENTIN 100 MG CAPSULE PO SCH ×3 (08:48→17:32)
[2022-07-14] MEDS: REMEDY ESSENTIAL ZINC PASTE 113 GM TOP SCH ×2 (08:49→20:23)
[2022-07-14] MEDS: THERAHONEY GEL 1.5 OZ TUBE TOP SCH (08:49)
[2022-07-14] MEDS: LORAZEPAM 0.5 MG TABLET PO PRN (13:40)
[2022-07-14] MEDS: METOPROLOL TARTRATE 25 MG TABLET PO SCH ×2 (13:43→20:22)
[2022-07-14 16:42] VITALS: BP 123/70
[2022-07-14] MEDS: MEGESTROL ACETATE 20 MG TABLET PO SCH (17:00)
[2022-07-14 19:55] VITALS: BP 116/60
[2022-07-14] MEDS: OLANZAPINE 10 MG VIAL IM PRN (21:00)
[2022-07-15 07:41] VITALS: BP 124/52
[2022-07-15] MEDS: OLANZAPINE 2.5 MG TABLET PO SCH ×4 (09:00→21:29)
[2022-07-15] MEDS: AZATHIOPRINE 50 MG TABLET PO SCH (09:00)
[2022-07-15] MEDS: GABAPENTIN 100 MG CAPSULE PO SCH ×3 (09:00→17:47)
[2022-07-15] MEDS: METOPROLOL TARTRATE 25 MG TABLET PO SCH ×2 (09:00→20:46)
[2022-07-15] MEDS: FAMOTIDINE 20 MG TABLET PO SCH (09:00)
[2022-07-15] MEDS: MEGESTROL ACETATE 20 MG TABLET PO SCH ×2 (09:00→17:49)
[2022-07-15] MEDS: OLANZAPINE 10 MG VIAL IM PRN (09:51)
[2022-07-15] MEDS: REMEDY ESSENTIAL ZINC PASTE 113 GM TOP SCH ×2 (10:08→21:28)
[2022-07-15] MEDS: THERAHONEY GEL 1.5 OZ TUBE TOP SCH (10:08)
--- NOTE | 2022-07-15 15:46 | NUR ---
patient is confused and disoriented total care to all ADLS, patient remains combative when care provided . patient remains isolative withdrawn unable to attend in group activity . appetites improving able to fed self . patient not compliant with medication PRN Zyprexa Im given as ordered.will continue close monitoring.
[2022-07-15 16:26] VITALS: BP 132/62
[2022-07-15 19:42] VITALS: BP 116/60
--- NOTE | 2022-07-16 04:33 | NUR ---
GPS NOTES: Patient A&0x1, unable to care for self, she is responding to internal stimuli, talking about there's people there and coming at her. She is mumbling to herself, not making any meaningful conversation with poor eye contact. She is accusatory of the staff when providing care. She was provided fluids and snacks. She consumed 100% of the juice served and 50% of the pudding served. She took her PO meds w/ no issues. All safety measures left in placed.
[2022-07-16 07:30] VITALS: BP 115/57
[2022-07-16] MEDS: OLANZAPINE 2.5 MG TABLET PO SCH ×4 (08:36→20:07)
[2022-07-16] MEDS: GABAPENTIN 100 MG CAPSULE PO SCH ×3 (08:36→16:42)
[2022-07-16] MEDS: METOPROLOL TARTRATE 25 MG TABLET PO SCH ×2 (08:37→20:09)
[2022-07-16] MEDS: AZATHIOPRINE 50 MG TABLET PO SCH (08:39)
[2022-07-16] MEDS: MEGESTROL ACETATE 20 MG TABLET PO SCH ×2 (08:39→16:39)
[2022-07-16] MEDS: FAMOTIDINE 20 MG TABLET PO SCH (08:40)
[2022-07-16] MEDS: REMEDY ESSENTIAL ZINC PASTE 113 GM TOP SCH ×2 (08:47→20:10)
[2022-07-16] MEDS: THERAHONEY GEL 1.5 OZ TUBE TOP SCH (08:48)
--- NOTE | 2022-07-16 11:48 | NUR ---
SURESH Family Contact: SURESH spoke with pt's daughter/DPOA, Key ([phone]) regarding pt's discharge plan. Key stated the plan remains for pt to return to [facility] ([phone]). SURESH stated this travel writer will speak to the facility again and reconfirm. Key reconfirmed that her or Radha will be able to provide transportation for the pt's return if the facility is not able to. SURESH will continue to follow-up with the family regarding pt's discharge plan with further updates.
--- NOTE | 2022-07-16 11:51 | NUR ---
SURESH Initial Discharge Note: SURESH spoke with Radha in admissions at [facility] located at [address] [place] [phone] ([phone]) who confirmed that pt is welcome back upon discharge. Radha stated there was incorrect information provided to this SW regarding transportation. The facility does not provide transportation to and from the hospital. SURESH stated this administrative underwriter will inform the pt's daughters and .
[2022-07-16 16:00] VITALS: BP 142/72
--- NOTE | 2022-07-16 18:07 | NUR ---
Patient is confused and combative impaired judgment, poor insight, resistant with nursing care, striking out to staff when assisting her with ADL's. responding to internal stimuli by talking to unseen others, talking incoherently, violent outburst without provocations, unable to formulate a viable plan for self care, refusing to eat, refusing PO medications, slapping staff hands when assisting her feeding, poor grooming, continue to monitor for safety.
[2022-07-16 19:47] VITALS: BP 136/66
[2022-07-16] MEDS: LORAZEPAM 0.5 MG TABLET PO PRN (20:07)
--- NOTE | 2022-07-17 05:18 | NUR ---
Pt slept 45 minutes. Combative with staff when providing care. Pt up in chair at nurses station. Alert but confused. Oral fluids and food encouraged with positive results. Safety strategies are in place. Continually assessing patient needs. No acute distress at this time.
[2022-07-17 07:30] VITALS: BP 119/70
[2022-07-17 07:34] LABS: ALANINE AMINOTRANSFERASE 33 U/L (14-59); ALKALINE PHOSPHATASE 158 U/L (50-136); ASPARTATE AMINOTRANSFERASE 61 U/L (15-37); BILIRUBIN,TOTAL 2.1 mg/dL (0.2-1.0); CARBON DIOXIDE 26 mmol/L (21-32); CHLORIDE 103 mmol/L (98-107); CREATININE 0.5 mg/dL (0.6-1.3); GLUCOSE 128 mg/dL (74-106); MAGNESIUM 1.8 mg/dL (1.8-2.4); PHOSPHOROUS 3.5 mg/dL (2.5-4.9); POTASSIUM 3.9 mmol/L (3.5-5.1); TOTAL PROTEIN, SERUM 6.2 g/dL (6.4-8.2); UREA NITROGEN, BLOOD 11 mg/dL (7-18)
[2022-07-17 07:41] LABS: HEMATOCRIT 37.7 % (31.2-41.9); MEAN CORPUSCULAR HEMOGLOBIN 34.9 uug (24.7-32.8); MEAN CORPUSCULAR VOLUME 99.2 fL (75.5-95.3); PLATELET COUNT (AUTO) 90 K/uL (179-408)
[2022-07-17] MEDS: GABAPENTIN 100 MG CAPSULE PO SCH ×3 (09:15→17:23)
[2022-07-17] MEDS: METOPROLOL TARTRATE 25 MG TABLET PO SCH ×2 (09:15→20:07)
[2022-07-17] MEDS: OLANZAPINE 2.5 MG TABLET PO SCH ×4 (09:15→20:06)
[2022-07-17] MEDS: FAMOTIDINE 20 MG TABLET PO SCH (09:15)
[2022-07-17] MEDS: MEGESTROL ACETATE 20 MG TABLET PO SCH ×2 (09:15→17:23)
[2022-07-17] MEDS: AZATHIOPRINE 50 MG TABLET PO SCH (09:15)
[2022-07-17] MEDS: REMEDY ESSENTIAL ZINC PASTE 113 GM TOP SCH ×2 (09:16→20:08)
[2022-07-17] MEDS: THERAHONEY GEL 1.5 OZ TUBE TOP SCH (09:24)
[2022-07-17 16:00] VITALS: BP 113/63
--- NOTE | 2022-07-17 17:45 | NUR ---
GPS: Patient remain confused ,impaired judgment, poor insight, resistant with nursing care, striking out to staff when assisting her with ADL's. responding to internal stimuli by talking to unseen others, talking incoherently, unable to formulate a viable plan for self care, refusing to eat, poor grooming, continue to monitor for safety.
[2022-07-17 19:51] VITALS: BP 118/69
[2022-07-18 07:30] VITALS: BP 97/48
[2022-07-18 09:00] VITALS: BP 97/48
[2022-07-18] MEDS: METOPROLOL TARTRATE 25 MG TABLET PO SCH (09:00)
[2022-07-18] MEDS: FAMOTIDINE 20 MG TABLET PO SCH (09:15)
[2022-07-18] MEDS: AZATHIOPRINE 50 MG TABLET PO SCH (09:15)
[2022-07-18] MEDS: MEGESTROL ACETATE 20 MG TABLET PO SCH (09:15)
[2022-07-18] MEDS: GABAPENTIN 100 MG CAPSULE PO SCH ×2 (09:15→13:07)
[2022-07-18] MEDS: OLANZAPINE 2.5 MG TABLET PO SCH ×2 (09:15→13:07)
[2022-07-18] MEDS: THERAHONEY GEL 1.5 OZ TUBE TOP SCH (09:16)
[2022-07-18] MEDS: REMEDY ESSENTIAL ZINC PASTE 113 GM TOP SCH (09:16)
--- NOTE | 2022-07-18 10:08 | NUR ---
SURESH Discharge Note: Pt will be discharged to [facility] located at [address], [place] [address] ([phone]) via pts [employer] private vehicle transportation at 1PM. SURESH spoke with admin coordinator, Radha at the facility who states they are ready to accept the patient today. Pts daughter/DPOAKey ([phone]) is aware and agreeable with the discharge plan. SURESH also informed pts other daughter/DPOARadha ([phone]) who is aware and agreeable with the discharge plan. Pt is aware and agreeable with discharge plan. Pt is alert and oriented x, is unable to plan for self-care at this time. However, pt is willing to accept care at SNF. Pt denies any suicidal or homicidal ideation. Pt will follow-up at the facility with Psychiatrist, Dr. Sheth and Warranty Administrator, Dr. Hatch. Pt presents with calm mood and congruent affect. PHARMACY: [facility] [phone] [address], [facility] [id number].
--- NOTE | 2022-07-18 15:06 | NUR ---
Received orders to discharge this patient to [facility] located at [address] [place] [id number] ([phone]) via [facility] at 3:00PM. Patient is agreeable with discharge plans, but refused to sign all discharge documentation. Patient denies SI/HI AH/VH, SOB, pain or any discomfort. Patient left the unit at 3:00PM. All belongings were returned to patient. Emotional support provided. Fall and safety precautions implemented.
== END 2022-07-18 15:00 | DRG 885 ==
LOC: GPS 21:00
PROVIDERS: ADMIT Psychiatry & Neurology Psychosomatic Medicine; ATTEND Internal Medicine
DX: F39 Unspecified mood [affective] disorder (principal); L89.313 Pressure ulcer of right buttock, stage 3; G92.8 Other toxic encephalopathy; D68.59 Other primary thrombophilia; E44.0 Moderate protein-calorie malnutrition; E87.1 Hypo-osmolality and hyponatremia; N39.0 Urinary tract infection, site not specified; F03.92 Unspecified dementia, unspecified severity, with psychotic disturbance; D69.6 Thrombocytopenia, unspecified; E86.0 Dehydration; G62.9 Polyneuropathy, unspecified; I10 Essential (primary) hypertension; M19.90 Unspecified osteoarthritis, unspecified site; Z88.2 Allergy status to sulfonamides; R74.01 Elevation of levels of liver transaminase levels; Z74.09 Other reduced mobility; Z91.199 Patient's noncompliance with other medical treatment and regimen due to unspecified reason; S51.811A Laceration without foreign body of right forearm, initial encounter; X58.XXXA Exposure to other specified factors, initial encounter; Y93.9 Activity, unspecified; Y92.89 Other specified places as the place of occurrence of the external cause; F31.9 Bipolar disorder, unspecified; K74.60 Unspecified cirrhosis of liver; E80.6 Other disorders of bilirubin metabolism; T50.2X5A Adverse effect of carbonic-anhydrase inhibitors, benzothiadiazides and other diuretics, initial encounter; Z68.22 Body mass index [BMI] 22.0-22.9, adult; Z20.822 Contact with and (suspected) exposure to COVID-19
CPT/HCPCS: 36415; 70030-TC; 83735; 84100; 85025; A6209; J2358; J7500